=== PATIENT | male | born 1990 | race Caucasian/White ===

== ENCOUNTER 2017-02-07 13:45 | Emergency (ER) | payer SELFPAY ==
[2017-02-07] MEDS ORDERED: Sodium Chloride 0.9% 10 ML Syringe FLUSH PRN (15:08)
[2017-02-07] MEDS ORDERED: Lidocaine 1% with EPINEPHrine 1:100,000 20 ML MDV INJECT ONE (15:09)
[2017-02-07] MEDS ORDERED: Lidocaine/EPINEPHrine/Tetracaine Soln 1 ML TOP ONE (15:09)
[2017-02-07] MEDS ORDERED: Sodium Chloride 0.9% 1,000 ML IV SCH (15:15)
--- NOTE | 2017-02-07 17:17 | EDM.PDOC ---
ED HPI GENERAL MEDICAL PROBLEM - General Chief Complaint: Chest Pain Stated Complaint: CHEST PAIN/POSS. INFECTION Time Seen by Provider: 02/07/17 14:44 Source of Information: Reports: Patient History Limitations: Reports: No Limitations - History of Present Illness INITIAL COMMENTS - FREE TEXT/NARRATIVE: The patient presents with chest pain to the left chest for a couple of days. It comes and goes. He has no shortness of breath with it. He has no nausea, vomiting, or abdominal pain. He has a subjective fever and chills. He has an abscess to the left groin buttock area. That has been there for about a week. He has had a history of staph infections before. He is not sure if it was MRSA. Onset: Gradual Duration: Day(s): (2) Location: Reports: Chest Quality: Reports: Sharp Severity: Moderate Improves with: Reports: None Worsens with: Reports: None Context: Reports: Activity (He was driving when it started) Associated Symptoms: Reports: Chest Pain, Fever/Chills Chest Pain Score (Numeric/FACES): 2 Rectal Pain Score (Numeric/FACES): 7 - Related Data Allergies Allergy/AdvReac Type Severity Reaction Status Date / Time No Known Allergies Allergy Verified 02/07/17 14:02 Home Meds: Home Meds Doxycycline [Vibramycin] 100 mg PO Q12HR #20 cap 02/07/17 [Rx] Hydrocodone/Acetaminophen [Hydrocodon-Acetaminophen 5-325] 1 - 2 each PO Q6HR PRN #20 tablet 02/07/17 [Rx] Past Medical History Gastrointestinal History: Reports: GERD Social & Family History - Tobacco Use Smoking Status *Q: Current Every Day Smoker Years of Tobacco use: 10 Packs/Tins Daily: 0.5 - Caffeine Use Caffeine Use: Reports: Coffee - Recreational Drug Use Recreational Drug Use: No ED ROS GENERAL - Review of Systems Review Of Systems: See Below Constitutional: Reports: Fever, Chills HEENT: Reports: No Symptoms Respiratory: Reports: No Symptoms Cardiovascular: Reports: Chest Pain Endocrine: Reports: No Symptoms GI/Abdominal: Reports: No Symptoms : Reports: No Symptoms Musculoskeletal: Reports: No Symptoms Skin: Reports: Other (abscess to left groin buttock area) ED EXAM, GENERAL - Physical Exam Exam: See Below Exam Limited By: No Limitations General Appearance: Alert, No Apparent Distress Ears: Normal External Exam Nose: Normal Inspection Head: Atraumatic, Normocephalic Neck: Normal Inspection Respiratory/Chest: No Respiratory Distress, Lungs Clear, Normal Breath Sounds Cardiovascular: Regular Rate, Rhythm, No Edema, No Murmur GI/Abdominal: Soft, Non-Tender, No Organomegaly, No Mass (Male) Exam: Other (Abscess to the left groin/buttock area with fluctuance, erythema, edema and pain upon palpation) Back Exam: Normal Inspection Extremities: Normal Inspection ED I&D PROCEDURES - I&D Site: Right groin buttocks Skin prep: Chlorhexidine (Hibiciens) Local anesthesia - Lidocaine (Xylocaine): 1% with EPI Local Anesthetic Volume: 2cc Area Incised With: 11 Blade Drainage: Purulent, Bloody, Large Amount Probed to Break Up Loculations: Yes Packed With: 1/4 in. Iodoform Complications: No EKG INTERPRETATION EKG Date: 02/07/17 Time: 14:07 Rhythm: Other (sinus tachycardia) Rate (Beats/Min): 113 [place]: Normal P-Wave: Present QRS: Normal ST-T: Normal QT: Normal Course - Vital Signs Last Recorded V/S: Last Vital Signs Temp 101.7 F H 02/07/17 14:03 Pulse 114 H 02/07/17 14:03 Resp 18 02/07/17 14:03 BP 123/66 02/07/17 14:03 Pulse Ox 98 02/07/17 14:03 - Orders/Labs/Meds Orders: Active Orders 24 hr Category Date Time Status Cardiac Monitoring [RC] . DIRECTED Care 02/07/17 15:08 Active EKG Documentation Completion [RC] STAT Care 02/07/17 15:08 Active Peripheral IV Care [RC] . DIRECTED Care 02/07/17 15:08 Active Chest 1V Frontal [CR] Stat Exams 02/07/17 15:09 Taken CULTURE ANAEROBIC + SMEAR [RM] Stat Lab 02/07/17 16:37 Received CULTURE BLOOD [BC] Stat Lab 02/07/17 17:11 Ordered CULTURE BLOOD [BC] Stat Lab 02/07/17 17:11 Ordered Sodium Chloride 0.9% [Normal Saline] 1,000 ml Med 02/07/17 15:15 Active IV .BOLUS Sodium Chloride 0.9% [Saline Flush] Med 11/29/17 15:08 Active 10 ml FLUSH ASDIRECTED PRN Blood Culture x2 Reflex Set [OM.PC] Stat Oth 02/07/17 17:11 Ordered Peripheral IV Insertion Adult [OM.PC] Stat Oth 02/07/17 15:08 Ordered Medication Orders Sodium Chloride (Normal Saline) 1,000 mls @ 1,000 mls/hr IV .BOLUS CORRIE Last Admin: 02/07/17 15:22 Dose: 1,000 mls/hr Sodium Chloride (Saline Flush) 10 ml FLUSH ASDIRECTED PRN PRN Reason: Keep Vein Open Labs: Laboratory Tests 02/07/17 02/07/17 Range/Units 14:50 14:50 WBC 15.27 H (4.23-9.07) K/mm3 RBC 5.03 (4.63-6.08) M/mm3 Hgb 15.2 (13.7-17.5) gm/L Hct 43.3 (40.1-51.0) % MCV 86.1 (79.0-92.2) fl MCH 30.2 (25.7-32.2) pg MCHC 35.1 (32.2-35.5) g/dl RDW Std Deviation 38.8 (35.1-43.9) fL Plt Count 269 (163-337) K/mm3 MPV 9.5 (9.4-12.3) fl Neut % (Auto) 73.0 H (34.0-67.9) % Lymph % (Auto) 13.9 L (21.8-53.1) % [place] % (Auto) 12.4 H (5.3-12.2) % Eos % (Auto) 0.2 L (0.8-7.0) Baso % (Auto) 0.2 (0.1-1.2) % Neut # (Auto) 11.14 H (1.78-5.38) K/mm3 Lymph # (Auto) 2.13 (1.32-3.57) K/mm3 [place] # (Auto) 1.89 H (0.30-0.82) K/mm3 Eos # (Auto) 0.03 L (0.04-0.54) K/mm3 Baso # (Auto) 0.03 (0.01-0.08) K/mm3 Manual Slide Review Normal smear Sodium 138 (136-145) mEq/L Potassium 3.5 (3.5-5.1) mEq/L Chloride 100 (98-107) mEq/L Carbon Dioxide 26 (21-32) mEq/L Anion Gap 15.5 H (5-15) BUN 9 (7-18) mg/dL Creatinine 1.3 (0.7-1.3) mg/dL Est Cr Clr Drug Dosing 93.92 mL/min Estimated GFR (MDRD) > 60 (>60) mL/min BUN/Creatinine Ratio 6.9 L (14-18) Glucose 79 (74-106) mg/dL Calcium 9.4 (8.5-10.1) mg/dL Total Bilirubin 0.9 (0.2-1.0) mg/dL AST 13 L (15-37) U/L ALT 20 (16-63) U/L Alkaline Phosphatase 110 (46-116) U/L Troponin I < 0.017 (0.00-0.056) ng/mL Total Protein 7.9 (6.4-8.2) g/dl Albumin 4.0 (3.4-5.0) g/dl Globulin 3.9 gm/dL Albumin/Globulin Ratio 1.0 (1-2) Meds: Medications Generic Name Dose Route Start Last Admin Trade Name Freq PRN Reason Stop Dose Admin Sodium Chloride 1,000 mls @ 1,000 mls/hr 02/07/17 15:15 02/07/17 15:22 Normal Saline IV 1,000 mls/hr .BOLUS CORRIE Administration Sodium Chloride 10 ml 02/07/17 15:08 Saline Flush FLUSH ASDIRECTED PRN Keep Vein Open Discontinued Medications Generic Name Dose Route Start Last Admin Trade Name Freq PRN Reason Stop Dose Admin Lidocaine/Epinephrine 20 ml 02/07/17 15:09 02/07/17 16:04 Xylocaine 1% With Epinephrine 1:100,000 INJECT 02/07/17 15:10 20 ml ONETIME ONE Administration Lidocaine/Tetracaine 1 ml 02/07/17 15:09 02/07/17 16:03 Let Soln TOP 02/07/17 15:10 1 ml ONETIME ONE Administration - Re-Assessments/Exams Free Text/Narrative Re-Assessment/Exam: 02/07/17 17:16 I ordered an IV NS 1L bolus, let to the abscess, lidocaine, labs, EKG, and CXR. His EKG shows a sinus tachycardia without acute changes. His CXR looks good. his WBC was elevated at 15.27. His CMP looks good. His troponin was negative. I cut open his abscess. I obtained blood and wound cultures. I will get him on some doxycycline and something for pain. Departure - Departure Time of Disposition: 17:20 Disposition: Home, Self-Care 01 Condition: Good Clinical Impression: Atypical chest pain, Abscess Prescriptions: Hydrocodone/Acetaminophen [Hydrocodon-Acetaminophen 5-325] 1 - 2 each PO Q6HR PRN #20 tablet PRN Reason: Pain Doxycycline [Vibramycin] 100 mg PO Q12HR #20 cap Referrals: PCP,None [Primary Care Provider] - () Tran Gallegos PA-C [Physician Radiology Transporter] - 1 Week Additional Instructions: Wash the area with warm soapy water 2 times per day and try to leave the packing in. Take the doxycycline 2 times per day for 10 days. Take tylenol or motrin for fever or chills and pain. You can also take some hydrocodone for pain. Please return if you are worse. - My Orders Last 24 Hours: My Active Orders 02/07/17 15:08 Cardiac Monitoring [RC] . DIRECTED EKG Documentation Completion [RC] STAT Peripheral IV Care [RC] . DIRECTED Sodium Chloride 0.9% [Saline Flush] 10 ml FLUSH ASDIRECTED PRN Peripheral IV Insertion Adult [OM.PC] Stat 02/07/17 15:09 Chest 1V Frontal [CR] Stat 02/07/17 15:15 Sodium Chloride 0.9% [Normal Saline] 1,000 ml IV .BOLUS 02/07/17 16:37 CULTURE ANAEROBIC + SMEAR [RM] Stat 02/07/17 17:11 CULTURE BLOOD [BC] Stat CULTURE BLOOD [BC] Stat Blood Culture x2 Reflex Set [OM.PC] Stat - Assessment/Plan Last 24 Hours: My Active Orders 02/07/17 15:08 Cardiac Monitoring [RC] . DIRECTED EKG Documentation Completion [RC] STAT Peripheral IV Care [RC] . DIRECTED Sodium Chloride 0.9% [Saline Flush] 10 ml FLUSH ASDIRECTED PRN Peripheral IV Insertion Adult [OM.PC] Stat 02/07/17 15:09 Chest 1V Frontal [CR] Stat 02/07/17 15:15 Sodium Chloride 0.9% [Normal Saline] 1,000 ml IV .BOLUS 02/07/17 16:37 CULTURE ANAEROBIC + SMEAR [RM] Stat 02/07/17 17:11 CULTURE BLOOD [BC] Stat CULTURE BLOOD [BC] Stat Blood Culture x2 Reflex Set [OM.PC] Stat
--- NOTE | 2017-02-08 10:09 | CR ---
Chest: Portable view of the chest was obtained. Comparison: No prior chest x-ray. Heart size and mediastinum are within normal limits. Lungs are clear. Bony structures are grossly intact. Impression: 1. Nothing acute is appreciated on portable chest x-ray. Diagnostic code #1
== END 2017-02-07 17:32 | disposition home or self-care (01) ==
LOC: JD.ED 13:45
DX: R07.89 Other chest pain (principal); L02.31 Cutaneous abscess of buttock; L02.214 Cutaneous abscess of groin; F17.210 Nicotine dependence, cigarettes, uncomplicated
CPT/HCPCS: 10060; 36415; 71010; 80053; 84484; 85025; 87040; 87075; 87205; 93005; 96360; 99285; A9270; J7040; 87076; 87077; 87181; 87186; 93010; 99284-25